=== PATIENT | male | born 1985 | race Caucasian/White ===

== ENCOUNTER 2024-01-20 06:29 | Emergency (ER) | payer OTHER ==
[2024-01-20] MEDS ORDERED: NA CHLORIDE 0.9% 1,000 ML ONE (06:52)
[2024-01-20 06:55] LABS: Absolute Eosinophils 0.3 K/uL (0-0.5); Absolute Lymphocytes (CBC) 1.6 K/uL (0.7-4.9); Absolute Monocytes 1.3 K/uL (0.1-1.3); Absolute Neutrophil 8.4 K/uL (1.8-8.0); Basophils % 0.1 % (0-1.3); Eosinophils % 2.2 % (0-4.4); Hematocrit 48.6 % (39.6-49.0); Hemoglobin 16.7 g/dL (13.6-17.9); MCH 31.6 pg (27.0-35.0); MCHC 34.4 g/dL (32.0-36.0); MPV 7.5 fL (7.6-11.3); Monocytes % 11.3 % (3.3-12.3); Neutrophils % 72.4 % (41.7-73.7); Platelets 313 thou/uL (152-406); RBC Red Blood Cell Count 5.29 M/uL (4.33-5.43); Red Cell Distribution Width 13.5 % (12.1-15.2)
[2024-01-20 07:01] LABS: Sqamous Epithelial None Seen /HPF (None Seen); Urine Bacteria None Seen /HPF (<20); Urine Bilirubin NEGATIVE (Negative); Urine Blood Negative (Negative); Urine Clarity Clear (Clear); Urine Color Yellow (Yellow); Urine Culture Reflex Order NOT NEEDED; Urine Glucose NEGATIVE (Negative); Urine Ketones 3+ (Negative); Urine Microscopic Reflex YN ORDER UMIC; Urine Mucus Slight /HPF (None Seen); Urine Nitrite NEGATIVE (Negative); Urine Protein TRACE (Negative); Urine RBC <5 /HPF (None Seen); Urine Urobilinogen Normal (Normal); Urine WBC <5 /HPF (<5); Urine Yeast (Budding) Trace /HPF (None Seen); Urine pH 5.5 (5.0-7.0)
[2024-01-20 07:22] LABS: Albumin 2.5 g/dL (3.4-5.0); Albumin/Globulin Ratio 0.7 (1.1-1.8); Anion Gap 7.1 mEq/L (5.0-15.0); Bilirubin Total 0.3 mg/dL (0.2-1.0); Globulin 3.4 g/dL (2.3-3.5); Potassium 4.1 mEq/L (3.5-5.1); Protein, Total 5.9 g/dL (6.4-8.2)
--- NOTE | 2024-01-20 08:12 | RAD REPORT ---
EXAMINATION: CT Abdomen Pelvis W Contrast CLINICAL INDICATION: Male, 39 years old. ABD PAIN TECHNIQUE: CT abdomen and pelvis was performed, after the administration of 100 mL Isovue 300 intrave nously, as per department protocol. Axial, sagittal and coronal reconstructions were obtained. One or more of the following dose reduction techniques were used: Automated exposure control, adjustment of the mA and kV according to patient size, and iterative reconstruction. Unless otherwise specified, incidental findings do not require dedicated imaging follow-up. COMPARISON: No prior exam. FINDINGS: LOWER CHEST: The visualized lung bases are clear. LIVER: Normal in size and contour. No focal lesion. BILIARY SYSTEM: No suspicious abnormalities. SPLEEN: Normal size. No focal lesion. PANCREAS: No mass, ductal dilation, or odalys-pancreatic fluid. ADRENALS: Normal; no mass. KIDNEYS: Normal size and contour. No hydronephrosis. URINARY BLADDER: Suboptimally distended limiting evaluation. GASTROINTESTINAL TRACT: No evidence of free air, significant intra-abdominal free fluid, bowel obstru ction or abscess. APPENDIX: Normal appendix. LYMPH NODES: No lymphadenopathy. MUSCULOSKELETAL: No acute or suspicious osseous abnormality. ADDITIONAL FINDINGS: None. IMPRESSION: No acute or concerning abnormalities seen in the abdomen or pelvis.
--- NOTE | 2024-01-20 08:28 | EDPHYS ---
Physician Documentation [facility] Name: Elroy Casanova Age: 39 yrs Sex: Male : 1985 Arrival Date: 01/20/2024 Time: 06:29 Bed 7 Private MD: ED Physician Jem Singer HPI: 01/19 06:45 This 39 yrs old Male presents to ER via Unassigned with complaints of Abdominal Pain. rt 06:45 Patient presents to the ED with nausea, vomiting, intermittent lower abdominal pain for rt about a week now. Patient states that he had a more intense episode this morning that has eased up but still feels some abdominal discomfort. Reports having diarrhea this morning. Denies hematemesis, hematochezia. Denies other acute complaints, symptoms are moderate in severity, no other aggravating alleviating factors.. Historical: - Allergies: 06:47 No Known Allergies; al5 - PMHx: 06:47 None; al5 - PSHx: 06:47 R rotator cuff; al5 - Immunization history:: Adult Immunizations up to date. - Infectious Disease History:: Denies. - Family history:: not pertinent. - Social history:: Smoking status: Patient denies any tobacco usage or history of. ROS: 06:45 Constitutional: Negative for fever, chills, and weight loss, Cardiovascular: Negative rt for chest pain, palpitations, and edema, Respiratory: Negative for shortness of breath, cough, wheezing, and pleuritic chest pain, MS/Extremity: Negative for injury and deformity, Skin: Negative for injury, rash, and discoloration, Neuro: Negative for headache, weakness, numbness, tingling, and seizure, 06:45 Abdomen/GI: Positive for abdominal pain, nausea and vomiting, Exam: 06:45 Constitutional: This is a well developed, well nourished patient who is awake, alert, rt and in no acute distress. Head/Face: Normocephalic, atraumatic. Chest/axilla: Normal chest wall appearance and motion. Nontender with no deformity. No lesions are appreciated. Cardiovascular: Regular rate and rhythm with a normal S1 and S2. No gallops, murmurs, or rubs. Normal PMI, no JVD. No pulse deficits. Respiratory: Lungs have equal breath sounds bilaterally, clear to auscultation and percussion. No rales, rhonchi or wheezes noted. No increased work of breathing, no retractions or nasal flaring. Skin: Warm, dry with normal turgor. Normal color with no rashes, no lesions, and no evidence of cellulitis. MS/ Extremity: Pulses equal, no cyanosis. Neurovascular intact. Full, normal range of motion. Neuro: Awake and alert, GCS 15, oriented to person, place, time, and situation. Cranial nerves II-XII grossly intact. Motor strength 5/5 in all extremities. Sensory grossly intact. Cerebellar exam normal. Normal gait. 06:45 Abdomen/GI: Tenderness to the left lower quadrant without guarding, rebound, distention, Vital Signs: 06:44 BP 94 / 80; Pulse 95; Resp 18; Temp 98.5; Pulse Ox 94% on R/A; Weight 79.38 kg; Height al5 5 ft. 10 in. ; Pain 3/10; 06:57 BP 118 / 75; Pulse 95; Resp 17 S; Pulse Ox 96% on R/A; ha1 07:05 BP 111 / 74; Pulse 68; Resp 16 S; Pulse Ox 96% on R/A; aa5 08:58 BP 107 / 75; Pulse 68; Resp 16 S; Pulse Ox 99% on R/A; aa5 06:44 Body Mass Index 25.11 (79.38 kg, 177.8 cm) al5 06:44 Pain Scale: Adult al5 MDM: 06:44 Medical Screening Exam initiated rt 07:10 Data reviewed: vital signs. ED course: Patient signed out to me by previous physician, coco in brief arrives today for evaluation of abdominal pain. Plan is to follow-up lab work and CT imaging.. 07:52 ED course: CBC, metabolic profile, lipase and urinalysis are nonactionable.. ec2 08:27 ED course: Lab work and imaging is nonactionable. Will discharge home have follow-up ec2 with GI. Return precautions given.. 11 06:44 Order name: CBC with Diff; Complete Time: 07:52 rt 01/19 06:44 Order name: CMP; Complete Time: 07:52 rt 01/19 06:44 Order name: Lipase; Complete Time: 07:52 rt 01/19 06:44 Order name: Urinalysis w/ reflexes; Complete Time: 07:52 rt 01/19 06:44 Order name: CT Abd/Pelvis - IV Contrast Only; Complete Time: 08:14 rt 01/19 06:44 Order name: IV Saline Lock; Complete Time: 06:53 rt 01/19 06:44 Order name: Labs collected and sent; Complete Time: 06:53 rt Administered Medications: 06:57 Drug: NS 0.9% IV 1000 ml IV at 1 bolus Per protocol; to be given as a bolus over 60 ha1 minutes Route: IV; Rate: 1 bolus; Site: right antecubital; 08:58 Follow up: IV Status: Completed infusion; IV Intake: 1000ml aa5 Disposition Summary: 01/20/24 08:27 Discharge Ordered Notes: Location: Home ec2 Condition: Stable ec2 Diagnosis - Lower abdominal pain, unspecified ec2 Followup: ec2 - With: Private Physician - When: - Reason: Re-evaluation by your physician Discharge Instructions: - Discharge Summary Sheet ec2 - Abdominal Pain, Adult ec2 Forms: - Medication Reconciliation Form ec2 - Antibiotic Education ec2 - Prescription Opioid Use ec2 - Patient Portal Instructions ec2 - Leadership Thank You Letter ec2 Prescriptions: - Reglan 10 mg Oral Tablet - take 1 tablet ORAL route every 6 hours take 30 minutes before meals and at ec2 bedtime; 20 tablet; Refills: 0, Product Selection Permitted - dicyclomine 10 mg Oral capsule - take 1 capsule ORAL route 3 times per day; 30 capsule; Refills: 0, Product ec2 Selection Permitted Signatures: Dispatcher [employer] Juli Dunlap RN RN ha1 Carlito Tobin MD MD rt Jem Singer MD MD ec2 Jerica Ponce RN RN al5 Pat Herzog RN aa5 Corrections: (The following items were deleted from the chart) 06:45 06:45 CBC+H.LAB.BRZ ordered. EDMS EDMS 06:45 06:45 COMPREHENSIVE METABOLIC PANEL+C.LAB.BRZ ordered. EDMS EDMS 06:45 06:45 LIPASE+C.LAB.BRZ ordered. EDMS EDMS 06:45 06:45 Urinalysis+U.LAB.BRZ ordered. EDMS EDMS 06:45 06:45 Abdomen Pelvis W Con+CT.RAD.BRZ ordered. EDMS EDMS
--- NOTE | 2024-01-20 08:28 | ER ---
Nurse's Notes [facility] Name: Elroy Casanova Age: 39 yrs Sex: Male : 1985 Arrival Date: 01/20/2024 Time: 06:29 Bed 7 Private MD: Diagnosis: Lower abdominal pain, unspecified Presentation: 01/19 06:44 Chief complaint: Patient states: c/o lower abdominal pain intermittent x1 week along al5 with nausea and intolerance to food. patient also states he has been experiencing soft stools for the past week, but recently turned to watery diarrhea about 2 days ago. Coronavirus screen: At this time, the client does not indicate any symptoms associated with coronavirus-19. Ebola Screen: No symptoms or risks identified at this time. Initial Sepsis Screen: Does the patient meet any 2 criteria? No. Patient's initial sepsis screen is negative. Does the patient have a suspected source of infection? No. Patient's initial sepsis screen is negative. Risk Assessment: Do you want to hurt yourself or someone else? Patient reports no desire to harm self or others. Onset of symptoms was January 13, 2024. 06:44 Method Of Arrival: Ambulatory al5 06:44 Acuity: YOLIS 3 al5 Triage Assessment: 06:48 General: Appears in no apparent distress. Behavior is calm, cooperative. Pain: al5 Complains of pain in right lower quadrant and left lower quadrant Pain currently is 3 out of 10 on a pain scale. at worst was 9 out of 10 on a pain scale. EENT: No signs and/or symptoms were reported regarding the EENT system. Neuro: Level of Consciousness is awake, alert, obeys commands, Oriented to person, place, time, situation. Cardiovascular: Capillary refill < 3 seconds Patient's skin is warm and dry. Respiratory: Airway is compromised Respiratory effort is even, unlabored, Respiratory pattern is regular, symmetrical. GI: Abdomen is flat, non-distended, Abd is soft X 4 quads Abdomen is tender to palpation in right lower quadrant and left lower quadrant Reports lower abdominal pain, diarrhea, intolerance of food, nausea, Pain is 3 out of 10 on a pain scale. : No signs and/or symptoms were reported regarding the genitourinary system. Derm: Skin is intact, is healthy with good turgor, Skin is pink, warm \T\ dry. normal. Musculoskeletal: No signs and/or symptoms reported regarding the musculoskeletal system. Historical: - Allergies: 06:47 No Known Allergies; al5 - PMHx: 06:47 None; al5 - PSHx: 06:47 R rotator cuff; al5 - Immunization history:: Adult Immunizations up to date. - Infectious Disease History:: Denies. - Family history:: not pertinent. - Social history:: Smoking status: Patient denies any tobacco usage or history of. Screenin:[facility] ED Fall Risk Assessment (Adult) History of falling in the last 3 months, al5 including since admission No falls in past 3 months (0 pts) Confusion or Disorientation No (0 pts) Intoxicated or Sedated No (0 pts) Impaired Gait No (0 pts) Mobility Assist Device Used No (0 pt) Altered Elimination No (0 pt) Score/Fall Risk Level 0 - 2 = Low Risk Oriented to surroundings, Maintained a safe environment, Used ambulatory aids as needed (educated on \T\ assisted with). Abuse screen: Denies threats or abuse. Denies injuries from another. Nutritional screening: No deficits noted. Tuberculosis screening: No symptoms or risk factors identified. Assessment: 06:51 Reassessment: see triage assessment. GI: Bowel sounds present X 4 quads. al5 07:05 Reassessment: Patient is alert, oriented x 3, equal unlabored respirations, skin aa5 warm/dry/pink. Awaiting complete lab results and CT scan, pt notified of wait time. . 07:41 Reassessment: Pt back from CT, awaiting results. ss 09:00 Reassessment: Patient is alert, oriented x 3, equal unlabored respirations, skin aa5 warm/dry/pink. Vital Signs: 06:44 BP 94 / 80; Pulse 95; Resp 18; Temp 98.5; Pulse Ox 94% on R/A; Weight 79.38 kg; Height al5 5 ft. 10 in. ; Pain 3/10; 06:57 BP 118 / 75; Pulse 95; Resp 17 S; Pulse Ox 96% on R/A; ha1 07:05 BP 111 / 74; Pulse 68; Resp 16 S; Pulse Ox 96% on R/A; aa5 08:58 BP 107 / 75; Pulse 68; Resp 16 S; Pulse Ox 99% on R/A; aa5 06:44 Body Mass Index 25.11 (79.38 kg, 177.8 cm) al5 06:44 Pain Scale: Adult al5 ED Course: 06:33 Patient arrived in ED. gm2 06:35 Carlito Tobin MD is Attending Physician. rt 06:47 Triage completed. al5 06:51 Arm band placed on right wrist. Patient placed in the treatment room, on a stretcher. al5 06:52 Patient has correct armband on for positive identification. Bed in low position. Call al5 light in reach. Side rails up X2. Provided Education on: plan of care. 06:52 No provider procedures requiring assistance completed. Inserted saline lock: 20 gauge al5 in right antecubital area, using aseptic technique. ,using aseptic technique. done by MADYSON rios Blood collected. Flushed with 10 mL NS. 06:53 CBC with Diff Sent. al5 06:53 CMP Sent. al5 06:53 Lipase Sent. al5 06:53 Urinalysis w/ reflexes Sent. al5 07:01 Attending Physician role handed off by Carlito Tobin MD ec2 07:01 Jem Singer MD is Attending Physician. ec2 07:39 CT Abd/Pelvis - IV Contrast Only In Process Unspecified. EDMS 07:42 Pat Herzog, MADYSON is Primary Nurse. aa5 08:58 IV discontinued, intact, bleeding controlled, No redness/swelling at site. Pressure aa5 dressing applied. Administered Medications: 06:57 Drug: NS 0.9% IV 1000 ml IV at 1 bolus Per protocol; to be given as a bolus over 60 ha1 minutes Route: IV; Rate: 1 bolus; Site: right antecubital; 08:58 Follow up: IV Status: Completed infusion; IV Intake: 1000ml aa5 Medication: 06:51 VIS not applicable for this client. al5 Intake: 08:58 IV: 1000ml; Total: 1000ml. aa5 Outcome: 08:27 Discharge ordered by . ec2 09:00 Discharged to home ambulatory, aa5 09:00 Condition: stable 09:00 Discharge instructions given to patient, Instructed on discharge instructions, follow up and referral plans. medication usage, Demonstrated understanding of instructions, follow-up care, medications, Prescriptions given X 2, 09:01 Patient left the ED. aa5 Signatures: Dispatcher [employer] Pat Zapata, RN RN aa5 Raisa Bhatia, MADYSON RN ss Juli Hernadez RN RN ha1 Carlito Tobin MD MD rt Jem Singer MD MD 2 Lotus Tena 2 Jerica Ponce RN RN al5
[2024-01-20 09:10] VITALS: TEMP 98.5
[2024-01-20 09:20] VITALS: BP 118/75; O2SAT 96
== END 2024-01-20 09:01 | disposition home or self-care (01) ==
LOC: ER 06:29
DX: R10.32 Left lower quadrant pain (principal); R19.7 Diarrhea, unspecified; R11.2 Nausea with vomiting, unspecified
CPT/HCPCS: 96361; 85025; 81001; 36415; 83690; 80053; 74177; 96360; 99284; Q9967; J7030